=== PATIENT | female | born 1970 | race Two or more races ===

== ENCOUNTER 2018-06-14 14:30 | Inpatient (IN) | payer OTHER ==
[2018-06-14 14:55] LABS: BASO % 0.5 % (0.0-2.0); EOS # 0.2 K/uL (0.0-0.7); EOS % 2.6 % (0.0-4.0); HEMOGLOBIN 14.2 g/dL (11.0-16.0); LYMPH # 2.7 K/uL (1.0-4.3); LYMPH % 40.2 % (20.0-40.0); MEAN CELL VOLUME 91.9 fL (81.0-99.0); MEAN CORPUSCULAR HEMOGLOBIN 30.7 pg (27.0-31.0); MEAN CORPUSCULAR HGB CONC 33.4 g/dL (33.0-37.0); MEAN PLATELET VOLUME 8.3 fL (7.2-11.7); MONO # 0.7 K/uL (0.0-0.8); MONO % 11.1 % (0.0-10.0); NEUT # 3.1 K/uL (1.8-7.0); NEUT % 45.6 % (50.0-75.0); RBC 4.63 Mil/uL (3.80-5.20); RED CELL DISTRIBUTION WIDTH 13.9 % (11.5-14.5); WHITE BLOOD COUNT 6.8 K/uL (4.8-10.8)
[2018-06-14 15:08] LABS: BLOOD UREA NITROGEN 22 mg/dL (7-17); CALCIUM 9.5 mg/dl (8.6-10.4); GFR NON-AFRICAN AMERICAN > 60; HDL CHOLESTEROL 106 mg/dL (30-70)
[2018-06-14] MEDS ORDERED: DiphenhydrAMINE 50 mg/ml Inj IVP STA (15:10)
[2018-06-14 15:14] LABS: ALB/GLOB RATIO 1.2 (1.0-2.1); ALBUMIN 4.8 g/dL (3.5-5.0); ALT/SGPT 15 U/L (9-52); AST/SGOT 41 U/L (14-36)
[2018-06-14 15:20] LABS: CK-MB 0.76 ng/mL (0.0-3.38); LDL CHOLESTEROL 151 mg/dL (0-129)
[2018-06-14] MEDS ORDERED: DiphenhydrAMINE 50 mg/ml Inj ONE (15:29)
--- NOTE | 2018-06-14 15:47 | C.PDOC ---
History Of Present Illness Patient presents to ED c/o severe diffuse headache, blurry vision and nausea since earlier today while she was at work. Headaches began on Monday. Patient admits to history of hypertension, takes Lisinopril 20mg daily and is compliant. She denies chest pain, palpitations, SOB, facial droop, slurred speech, extremity weakness, sensory changes. Patient states she was given 5 ASA 81mg at her job. Time Seen by Provider: 06/14/18 14:44 Chief Complaint (Nursing): Headache History Per: Patient History/Exam Limitations: no limitations Onset/Duration Of Symptoms: Days Current Symptoms Are (Timing): Worse Severity: Severe Quality: "Pain" Associated Symptoms: Blurred Vision, Nausea Past Medical History Reviewed: Historical Data, Nursing Documentation, Vital Signs Vital Signs: Last Vital Signs Temp 98.5 F 06/14/18 14:34 Pulse 71 06/14/18 14:34 Resp 18 06/14/18 14:34 BP 241/145 H 06/14/18 14:34 Pulse Ox 100 06/14/18 14:34 - Medical History PMH: Asthma, HTN Surgical History: No Surg Hx Family History: States: No Known Family Hx - Social History Hx Alcohol Use: No Hx Substance Use: No - Immunization History Hx Tetanus Toxoid Vaccination: No Hx Influenza Vaccination: No Hx Pneumococcal Vaccination: No Review Of Systems Constitutional: Negative for: Fever, Chills Eyes: Positive for: Vision Change Cardiovascular: Negative for: Chest Pain, Palpitations Respiratory: Negative for: Cough, Shortness of Breath Gastrointestinal: Positive for: Nausea. Negative for: Vomiting, Abdominal Pain, Diarrhea Neurological: Positive for: Headache. Negative for: Weakness, Numbness, Incoordination, Change in Speech, Confusion, Seizures, Altered Mental Status, Dizziness Physical Exam - Physical Exam Appears: Well, Non-toxic, In Acute Distress (in moderate pain) Head: Atraumatic, Normacephalic Eye(s): bilateral: Normal Inspection, PERRL, EOMI Oral Mucosa: Moist Cardiovascular: Rhythm Regular Respiratory: Normal Breath Sounds, No Rales, No Rhonchi, No Wheezing Gastrointestinal/Abdominal: Normal Exam, Bowel Sounds, Soft, No Tenderness Extremity: Normal ROM, No Pedal Edema, No Calf Tenderness Pulses: Left Dorsalis Pedis: Normal, Right Dorsalis Pedis: Normal Neurological/Psych: Oriented x3, Normal Speech, Normal Cognition, Normal Cranial Nerves, No Cerebellar Signs, Normal Motor, Normal Sensation, No Dysarthria, No Romberg ED Course And Treatment - Laboratory Results Result Diagrams: 06/15/18 07:24 06/15/18 07:24 ECG: Interpreted By Me, Viewed By Me (NSR 66bpm, normal axis, LVH, T wave inversions III, aVF, no acute ST changes) ECG Interpretation: Abnormal O2 Sat by Pulse Oximetry: 100 (ra) Pulse Ox Interpretation: Normal - Radiology CXR: Interpreted by Me, Viewed By Me CXR Interpretation: Yes: No Acute Disease. No: Infiltrates - CT Scan/US ct head Other Rad Studies (CT/US): Read By Radiologist, Radiology Report Reviewed CT/US Interpretation: Accession No. : [id number]. Patient Name / ID : GITA GOLDBERG / [id number]. Exam Date : 06/14/2018 14:50:20 ( Approved ). Study Comment : Sex / Age : F / 47Y. Creator : Shirley Steven MD. Dictator : Shirley Steven MD. Vp Compliance : Group Product Manager : Shirley Steven MD. Approver2 : Report Date : 06/14/2018 15:03:59. My Comment : . Date of service: 06/14/2018. PROCEDURE: CT HEAD WITHOUT CONTRAST. HISTORY: Code Stroke. COMPARISON: None available. TECHNIQUE: Axial computed tomography images were obtained through the head/brain without intravenous contrast. Radiation dose: Total exam DLP = 10 67.25 mGy-cm. This CT exam was performed using one or more of the following dose reduction techniques: Automated exposure control, adjustment of the mA and/or kV according to patient size, and/or use of iterative reconstruction technique. FINDINGS: HEMORRHAGE: No intracranial hemorrhage. BRAIN: No mass effect or edema. Intracranial atherosclerosis. Bilateral basal ganglia calcifications. No atrophy or chronic microvascular ischemic changes.Please note that MRI with diffusion imaging is more sensitive in the detection of acute ischemic event. VENTRICLES: No hydrocephalus. CALVARIUM: Unremarkable. PARANASAL SINUSES: Unremarkable as visualized. No significant inflammatory changes. MASTOID AIR CELLS: Unremarkable as visualized. No inflammatory changes. OTHER FINDINGS: None. IMPRESSION: No acute intracranial pathology identified. Findings discussed with Dr. Lopez on 06/14/18 at 3:02 p.m. Progress Note: Code stroke called. Blood work, CT head, EKG, UA, Upreg ordered and reviewed. Patient given IV reglan + benadryl for headache and nausea. 4 :20pm- Patient reassessed, headache, lightheadedness and blurry vision resolved, patient states she feels much better. BP still 180s/110s. Patient to be obs telemetry for hypertensive urgency. - Physician Consult Information Physician Contacted: Caesar Miguel Outcome Of Conversation: Discussed patient with hospitalist, agrees with admission for HTN urgency. Discussed patient with neurology Dr. Mehta, will see patient on consult. Critical Care Time - Critical Care Note Total Time (in mins): 35 Documented critical care: time excludes all time spent performing seperately billable procedures. NIHSS Stroke Scale - Date/Time Evaluation Performed Date Performed: 06/14/18 Time Performed: 14:40 When Was NIHSS Performed: Baseline - How Severe is the Stoke Level of Consciousness: 0=Alert LOC to Questions: 0=Both comments correct LOC to commands: 0=Obeys both correctly Best Gaze: 0=Normal Visual: 0=No visual loss Facial: 0=Normal Motor Arm - Left: 0=No drift Motor Arm - Right: 0=No drift Motor Leg - Left: 0=No drift Motor Leg - Right: 0=No drift Limb Ataxia: 0=Absent Sensory: 0=Normal Best Language: 0=No aphasia Dysarthia: 0=Normal articulation Extinction & Inattention (Neglect): 0=Normal, no object Score: 0 Severity Of Stroke: 0= No Stroke rTPA Inclusion/Exclusion - Refusal of Treatment Patient Refused Treatment: No - Inclusion Criteria for Altepase Patient is 18 years or Older: Yes The Clinical Diagnosis of Ischemic Stroke That is Causing a Potentially Disabling Neurological Deficit: No Time of Onset is Well Established to be Less Than 270 Minute Before Treatment Would Begin: Yes Risk/Benefit Discussed With Patient/Family Member Present: No Disposition - Disposition Disposition: HOSPITALIZED Disposition Time: 16:45 Condition: STABLE - Clinical Impression Clinical Impression: Hypertensive urgency Decision To Admit - Pt Status Changed To: Hospital Disposition Of: Observation - . Bed Request Type: Telemetry Admitting Physician: Caesar Miguel Patient Diagnosis: Hypertensive urgency
[2018-06-14 15:53] LABS: HCG,QUALITATIVE URINE NEGATIVE (NEGATIVE)
[2018-06-14 15:54] LABS: SQUAMOUS EPITHIAL 3 /hpf (0-5); URINE BILIRUBIN NEGATIVE (NEGATIVE); URINE BLOOD NEGATIVE (NEGATIVE); URINE CLARITY Clear (Clear); URINE COLOR Yellow (YELLOW); URINE GLUCOSE (UA) NORMAL (Normal); URINE LEUKOCYTE ESTERASE NEG Leu/uL (Negative); URINE PROTEIN NEGATIVE (NEGATIVE); URINE UROBILINOGEN NORMAL mg/dL (0.2-1.0)
[2018-06-14 15:56] LABS: INR 0.9; PROTHROMBIN TIME 10.1 SECONDS (9.7-12.2)
--- NOTE | 2018-06-14 16:34 | RAD ---
HISTORY: Code Stroke COMPARISON: None available. TECHNIQUE: Chest, one view. FINDINGS: LUNGS: Hyperinflation may be seen in the setting of COPD. No focal consolidation. Please note that chest x-ray has limited sensitivity for the detection of pulmonary masses. PLEURA: No significant pleural effusion identified. No definite pneumothorax . CARDIOVASCULAR: The cardiomediastinal silhouette appears within normal limits of size. Mild atherosclerotic calcification present. OSSEOUS STRUCTURES: No acute osseous abnormality identified. VISUALIZED UPPER ABDOMEN: Unremarkable. OTHER FINDINGS: None. IMPRESSION: Hyperinflation may be seen in the setting of COPD.
[2018-06-14 16:49] VITALS: RESP 20
--- NOTE | 2018-06-14 17:35 | CP.PCM.HP ---
<Shante Cruz - Last Filed: 06/14/18 19:54> History of Present Illness - History of Present Illness History of Present Illness: History and physical for Hospitalist service (Dr. Caesar Miguel) CC "headache, dizziness" HPI: Patient is a 47 year old female who reports she started experiencing a headache described as pressure like pain that started in the left side of her head and spread to the rest of her head that initially started 4 days ago. She states she has been taking Advil 200mg frequently for her headaches. She states she woke up from her sleep with a severe pressure like headache and she took Advil 400mg this morning. She went to work this morning and began to experience some dizziness which she describes as feeling like "her head was shrinking" associated with blurry vision. Her coworker who works as an EMT reportedly gave her ASA 81mg x5 and she was brought to the ED by her boss. She admits she had a similar episode of headache about 3 months ago when she went to the [place] ED and was found to have elevated blood pressure in the 200s. She states she was given IV medications and observed for a few hours before being sent home. She currently states she is no longer dizzy or experiencing blurry vision, but states her headache currently is a 6/10. At its worst her headache was a 10/10 and its best at home, her headache was 7/10. She denies recent falls, recent injury, recent syncopal episodes. She denies recent travel or sick contacts. ROS: (+) palpitations when she experienced pressure like headache, resolved, (+) nausea after she took Advil on an empty stomach denies fevers, chills, loss of consciousness, chest pain, shortness of breath, abdominal pain, vomiting, diarrhea, constipation, dysuria, polyuria, change in bowel movements, bloody or dark stools, leg swelling or leg pain. PMH: hypertension, asthma (no hx of prior intubations or hospitalizations for her asthma, last used her rescue inhaler over 2 years ago) PSH: tubal ligation Allergies: NKDA Meds: Lisinopril 20mg daily, Advair 1 puff daily, Albuterol inhaler as needed. 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 Has smoked since the age of 14, currently smokes 2 cigarettes daily. Drinks 2 glasses of wine with dinner occasionally. Denies illicit drug use. Currently single, has 1 child. Family hx: Mother had DM. Parents and sister has hyperlipidemia. Brother has asthma. 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 Code status: full code Advance directive: none Health care proxy: has not designated Present on Admission - Present on Admission Any Indicators Present on Admission: No Review of Systems - Constitutional Constitutional: Headache. absent: Chills, Fever - EENT Eyes: Blurred Vision Ears: absent: Decreased Hearing - Cardiovascular Cardiovascular: absent: Chest Pain, Dyspnea, Leg Edema, Syncope - Respiratory Respiratory: absent: Cough, Dyspnea, Hemoptysis - Gastrointestinal Gastrointestinal: Nausea. absent: Abdominal Pain, Diarrhea, Vomiting - Genitourinary Genitourinary: absent: Difficulty Urinating, Dysuria, Urinary Incontinence - Musculoskeletal Musculoskeletal: absent: Back Pain, Numbness, Tingling - Neurological Neurological: Dizziness. absent: Confusion, Focal Weakness - Psychiatric Psychiatric: absent: Anxiety, Depression Past Patient History - Past Social History Smoking Status: Heavy Smoker > 10 Cigarettes Daily - CARDIAC Hx Hypertension: Yes - PULMONARY Hx Asthma: Yes - PSYCHIATRIC Hx Substance Use: No - ANESTHESIA Hx Anesthesia: No Meds Allergies/Adverse Reactions: Allergies Allergy/AdvReac Type Severity Reaction Status Date / Time No Known Allergies Allergy Verified 06/14/18 14:43 Physical Exam - Constitutional Appears: Well, No Acute Distress - Head Exam Head Exam: ATRAUMATIC, NORMOCEPHALIC - Eye Exam Eye Exam: EOMI, PERRL - ENT Exam ENT Exam: Mucous Membranes Moist - Neck Exam Neck exam: Positive for: Full Rom. Negative for: Lymphadenopathy, Thyromegaly Additional comments: (+) mild paracervical tenderness, mild tenderness of trapezius bilaterally - Respiratory Exam Respiratory Exam: Clear to Auscultation Bilateral, NORMAL BREATHING PATTERN. absent: Accessory Muscle Use, Rales, Rhonchi, Wheezes, Stridor - Cardiovascular Exam Cardiovascular Exam: REGULAR RHYTHM, +S1, +S2. absent: Gallop, Rubs, Systolic Murmur - GI/Abdominal Exam GI & Abdominal Exam: Normal Bowel Sounds, Soft. absent: Distended, Firm, Guarding, Rebound, Rigid, Tenderness - Extremities Exam Extremities exam: Positive for: normal capillary refill, pedal pulses present. Negative for: calf tenderness, pedal edema Additional comments: Pulses equal in upper and lower extremities - Back Exam Back exam: absent: CVA tenderness (L), CVA tenderness (R), rash noted - Neurological Exam Neurological exam: Alert, CN II-XII Intact, Oriented x3 Additional comments: Strength equal and full in upper and lower extremities. Sensation intact. - Psychiatric Exam Psychiatric exam: Normal Affect, Normal Mood - Skin Skin Exam: Dry, Intact, Warm Results - Vital Signs Recent Vital Signs: Last Vital Signs Temp 98.5 F 06/14/18 14:34 Pulse 64 06/14/18 16:47 Resp 20 06/14/18 16:47 BP 188/126 H 06/14/18 16:47 Pulse Ox 100 06/14/18 16:47 - Labs Result Diagrams: 06/14/18 14:51 06/14/18 14:51 Labs: Laboratory Results - last 24 hr 06/14/18 06/14/18 06/14/18 14:43 14:51 14:51 WBC 6.8 RBC 4.63 Hgb 14.2 Hct 42.6 MCV 91.9 MCH 30.7 MCHC 33.4 RDW 13.9 Plt Count 265 MPV 8.3 Neut % (Auto) 45.6 L Lymph % (Auto) 40.2 H [place] % (Auto) 11.1 H Eos % (Auto) 2.6 Baso % (Auto) 0.5 Neut # (Auto) 3.1 Lymph # (Auto) 2.7 [place] # (Auto) 0.7 Eos # (Auto) 0.2 Baso # (Auto) 0.0 PT Cancelled INR Cancelled APTT Cancelled Sodium Potassium Chloride Carbon Dioxide Anion Gap BUN Creatinine Est GFR ( Amer) Est GFR (Non-Af Amer) POC Glucose (mg/dL) 80 Random Glucose Hemoglobin A1c Calcium Total Bilirubin AST ALT Alkaline Phosphatase Total Creatine Kinase CK-MB (Mass) Troponin I Total Protein Albumin Globulin Albumin/Globulin Ratio Triglycerides Cholesterol LDL Cholesterol Direct HDL Cholesterol Urine Color Urine Clarity Urine pH Ur Specific [place] Urine Protein Urine Glucose (UA) Urine Ketones Urine Blood Urine Nitrate Urine Bilirubin Urine Urobilinogen Ur Leukocyte Esterase Urine WBC (Auto) Urine RBC (Auto) Ur Squamous Epith Cells Urine HCG, Qual Blood Type Antibody Screen 06/14/18 06/14/18 06/14/18 14:51 14:51 15:41 WBC RBC Hgb Hct MCV MCH MCHC RDW Plt Count MPV Neut % (Auto) Lymph % (Auto) [place] % (Auto) Eos % (Auto) Baso % (Auto) Neut # (Auto) Lymph # (Auto) [place] # (Auto) Eos # (Auto) Baso # (Auto) PT INR APTT Sodium 139 Potassium 4.6 Chloride 101 Carbon Dioxide 28 Anion Gap 15 BUN 22 H Creatinine 0.8 Est GFR ( Amer) > 60 Est GFR (Non-Af Amer) > 60 POC Glucose (mg/dL) Random Glucose 82 Hemoglobin A1c 5.3 Calcium 9.5 Total Bilirubin 1.0 AST 41 H ALT 15 Alkaline Phosphatase 62 Total Creatine Kinase 68 CK-MB (Mass) 0.76 Troponin I 0.0160 Total Protein 8.7 H Albumin 4.8 Globulin 3.9 Albumin/Globulin Ratio 1.2 Triglycerides 94 Cholesterol 284 H LDL Cholesterol Direct 151 H HDL Cholesterol 106 H Urine Color Yellow Urine Clarity Clear Urine pH 6.0 Ur Specific [place] 1.020 Urine Protein Negative Urine Glucose (UA) Normal Urine Ketones Negative Urine Blood Negative Urine Nitrate Negative Urine Bilirubin Negative Urine Urobilinogen Normal Ur Leukocyte Esterase Neg Urine WBC (Auto) 1 Urine RBC (Auto) < 1 Ur Squamous Epith Cells 3 Urine HCG, Qual Negative Blood Type Antibody Screen 06/14/18 06/14/18 15:41 15:42 WBC RBC Hgb Hct MCV MCH MCHC RDW Plt Count MPV Neut % (Auto) Lymph % (Auto) [place] % (Auto) Eos % (Auto) Baso % (Auto) Neut # (Auto) Lymph # (Auto) [place] # (Auto) Eos # (Auto) Baso # (Auto) PT 10.1 INR 0.9 APTT 30 Sodium Potassium Chloride Carbon Dioxide Anion Gap BUN Creatinine Est GFR ( Amer) Est GFR (Non-Af Amer) POC Glucose (mg/dL) Random Glucose Hemoglobin A1c Calcium Total Bilirubin AST ALT Alkaline Phosphatase Total Creatine Kinase CK-MB (Mass) Troponin I Total Protein Albumin Globulin Albumin/Globulin Ratio Triglycerides Cholesterol LDL Cholesterol Direct HDL Cholesterol Urine Color Urine Clarity Urine pH Ur Specific [place] Urine Protein Urine Glucose (UA) Urine Ketones Urine Blood Urine Nitrate Urine Bilirubin Urine Urobilinogen Ur Leukocyte Esterase Urine WBC (Auto) Urine RBC (Auto) Ur Squamous Epith Cells Urine HCG, Qual Blood Type O POSITIVE Antibody Screen Negative Assessment & Plan - Assessment and Plan (Free Text) Plan: Assessment 47 year old female with history of hypertension and asthma who presented for complaints of headache, dizziness and blurry vision and found to have elevated blood pressure. Plan Hypertensive urgency Symptoms of headache, dizziness and blurry vision likely secondary to elevated blood pressure On arrival to ED, code stroke was called and ED consulted Neurologist Dr. Darron Mehta as per protocol EKG: NSR at 66 with LVH CXR (06/14/18): Hyperinflation may be seen in the setting of COPD CT head: no acute bleed On arrival to ED, patient's initial blood pressure elevated at 241/145 Patient received Reglan 10mg with reduction of systolic blood pressure to 180s. Current blood pressure at 188/126 Given patient's symptoms started a few days ago, current plan to allow for permissive hypertension for 24 hours Hydralazine 10mg PO Q6 as needed if systolic BP exceeds 180s Consider adding Lisinopril and Norvasc after 24 hours have elapsed. F/u TSH,T4 Hyperlidemia TG 94 Cholesterol 284 LDL 151 HDL 106 Consider statin LVH seen on EKG f/u ECHO History of asthma Currently asymptomatic Last asthma exacerbation where patient had to use rescue inhaler over 2 years ago. Duonebs Q6 PRN Breo Ellipta 100-25 1 puff daily Prophylaxis: DVT: SCDs, chemical anticoagulation not indicated GI: not indicated Heart healthy diet, 2 g Na Case discussed with Dr. Caesar Cruz, PGY1 <Caesar Miguel - Last Filed: 06/17/18 20:28> Results - Vital Signs Recent Vital Signs: Last Vital Signs Temp 98.1 F 06/15/18 15:15 Pulse 63 06/15/18 15:15 Resp 20 06/15/18 15:15 BP 140/91 H 06/15/18 15:15 Pulse Ox 97 06/15/18 15:15 - Labs Result Diagrams: 06/15/18 07:24 06/15/18 07:24 Attending/Attestation - Attestation I have personally seen and examined this patient.: Yes I have fully participated in the care of the patient.: Yes I have reviewed all pertinent clinical information: Yes Notes (Text): 06/17/18 20:27 This is a late entry. History, Physical, Assessment and Plan, and all orders were gone over in detail with the resident. Caesar Miguel D.O.
[2018-06-14] MEDS ORDERED: Albuterol-Ipratrop 3 mg / 0.5 (3 ml) UD INH PRN (18:38)
[2018-06-15 07:39] LABS: BASO % 0.2 % (0.0-2.0); EOS # 0.2 K/uL (0.0-0.7); EOS % 4.4 % (0.0-4.0); HEMOGLOBIN 13.2 g/dL (11.0-16.0); LYMPH % 37.6 % (20.0-40.0); MEAN CELL VOLUME 91.4 fL (81.0-99.0); MEAN CORPUSCULAR HEMOGLOBIN 32.3 pg (27.0-31.0); MEAN CORPUSCULAR HGB CONC 35.4 g/dL (33.0-37.0); MEAN PLATELET VOLUME 8.5 fL (7.2-11.7); MONO # 0.5 K/uL (0.0-0.8); MONO % 9.8 % (0.0-10.0); NEUT # 2.6 K/uL (1.8-7.0); RBC 4.07 Mil/uL (3.80-5.20); RED CELL DISTRIBUTION WIDTH 13.8 % (11.5-14.5); WHITE BLOOD COUNT 5.3 K/uL (4.8-10.8)
[2018-06-15] MEDS ORDERED: Fluticasone-Vilanterol 100/25mcg Diskus INH SCH (08:00)
--- NOTE | 2018-06-15 08:43 | CT ---
Date of service: 06/14/2018 PROCEDURE: CT HEAD WITHOUT CONTRAST. HISTORY: Code Stroke COMPARISON: None available. TECHNIQUE: Axial computed tomography images were obtained through the head/brain without intravenous contrast. Radiation dose: Total exam DLP = 1067.25 mGy-cm. This CT exam was performed using one or more of the following dose reduction techniques: Automated exposure control, adjustment of the mA and/or kV according to patient size, and/or use of iterative reconstruction technique. FINDINGS: HEMORRHAGE: No intracranial hemorrhage. BRAIN: No mass effect or edema. Intracranial atherosclerosis. Bilateral basal ganglia calcifications. No atrophy or chronic microvascular ischemic changes.Please note that MRI with diffusion imaging is more sensitive in the detection of acute ischemic event. VENTRICLES: No hydrocephalus. CALVARIUM: Unremarkable. PARANASAL SINUSES: Unremarkable as visualized. No significant inflammatory changes. MASTOID AIR CELLS: Unremarkable as visualized. No inflammatory changes. OTHER FINDINGS: None. IMPRESSION: No acute intracranial pathology identified. Findings discussed with Dr. Lopez on 06/14/18 at 3:02 p.m.
[2018-06-15 09:10] LABS: ALB/GLOB RATIO 1.3 (1.0-2.1); ALBUMIN 3.9 g/dL (3.5-5.0); ALT/SGPT 15 U/L (9-52); AST/SGOT 24 U/L (14-36); BLOOD UREA NITROGEN 22 mg/dL (7-17); GFR NON-AFRICAN AMERICAN > 60
[2018-06-15 12:08] VITALS: PULSE 63
--- NOTE | 2018-06-15 12:37 | CP.PCM.DIS ---
<CouchXochitl - Last Filed: 06/15/18 16:00> Provider - Provider Date of Admission: 06/14/18 16:45 Attending physician: Caesar Miguel MD Time Spent in preparation of Discharge (in minutes): 45 Diagnosis - Discharge Diagnosis (1) Hypertensive urgency Status: Acute Hospital Course - Lab Results Lab Results: Most Recent Lab Values WBC 5.3 K/uL (4.8-10.8) 06/15/18 07:24 RBC 4.07 Mil/uL (3.80-5.20) 06/15/18 07:24 Hgb 13.2 g/dL (11.0-16.0) 06/15/18 07:24 Hct 37.2 % (34.0-47.0) 06/15/18 07:24 MCV 91.4 fL (81.0-99.0) 06/15/18 07:24 MCH 32.3 pg (27.0-31.0) H 06/15/18 07:24 MCHC 35.4 g/dL (33.0-37.0) 06/15/18 07:24 RDW 13.8 % (11.5-14.5) 06/15/18 07:24 Plt Count 240 K/uL (130-400) 06/15/18 07:24 MPV 8.5 fL (7.2-11.7) 06/15/18 07:24 Neut % (Auto) 48.0 % (50.0-75.0) L 06/15/18 07:24 Lymph % (Auto) 37.6 % (20.0-40.0) 06/15/18 07:24 [place] % (Auto) 9.8 % (0.0-10.0) 06/15/18 07:24 Eos % (Auto) 4.4 % (0.0-4.0) H 06/15/18 07:24 Baso % (Auto) 0.2 % (0.0-2.0) 06/15/18 07:24 Neut # (Auto) 2.6 K/uL (1.8-7.0) 06/15/18 07:24 Lymph # (Auto) 2.0 K/uL (1.0-4.3) 06/15/18 07:24 [place] # (Auto) 0.5 K/uL (0.0-0.8) 06/15/18 07:24 Eos # (Auto) 0.2 K/uL (0.0-0.7) 06/15/18 07:24 Baso # (Auto) 0.0 K/uL (0.0-0.2) 06/15/18 07:24 PT 10.1 SECONDS (9.7-12.2) 06/14/18 15:41 INR 0.9 06/14/18 15:41 APTT 30 SECONDS (21-34) 06/14/18 15:41 Sodium 137 mmol/L (132-148) 06/15/18 07:24 Potassium 4.2 mmol/L (3.6-5.2) 06/15/18 07:24 Chloride 104 mmol/L (98-107) 06/15/18 07:24 Carbon Dioxide 27 mmol/L (22-30) 06/15/18 07:24 Anion Gap 10 (10-20) 06/15/18 07:24 BUN 22 mg/dL (7-17) H 06/15/18 07:24 Creatinine 0.8 mg/dL (0.7-1.2) 06/15/18 07:24 Est GFR ( Amer) > 60 06/15/18 07:24 Est GFR (Non-Af Amer) > 60 06/15/18 07:24 POC Glucose (mg/dL) 80 mg/dL (65-110) 06/14/18 14:43 Random Glucose 93 mg/dL (65-105) 06/15/18 07:24 Hemoglobin A1c 5.3 % (4.2-6.5) 06/14/18 14:51 Calcium 9.0 mg/dl (8.6-10.4) 06/15/18 07:24 Phosphorus 3.9 mg/dL (2.5-4.5) 06/15/18 07:24 Magnesium 1.9 mg/dL (1.6-2.3) 06/15/18 07:24 Total Bilirubin 0.5 mg/dL (0.2-1.3) 06/15/18 07:24 AST 24 U/L (14-36) 06/15/18 07:24 ALT 15 U/L (9-52) 06/15/18 07:24 Alkaline Phosphatase 50 U/L (38-126) 06/15/18 07:24 Total Creatine Kinase 68 U/L (30-135) 06/14/18 14:51 CK-MB (Mass) 0.76 ng/mL (0.0-3.38) 06/14/18 14:51 Troponin I 0.0160 ng/mL (0.00-0.120) 06/14/18 14:51 Total Protein 6.9 g/dL (6.3-8.3) 06/15/18 07:24 Albumin 3.9 g/dL (3.5-5.0) 06/15/18 07:24 Globulin 3.0 gm/dL (2.2-3.9) 06/15/18 07:24 Albumin/Globulin Ratio 1.3 (1.0-2.1) 06/15/18 07:24 Triglycerides 94 mg/dL (0-149) 06/14/18 14:51 Cholesterol 284 mg/dL (0-199) H 06/14/18 14:51 LDL Cholesterol Direct 151 mg/dL (0-129) H 06/14/18 14:51 HDL Cholesterol 106 mg/dL (30-70) H 06/14/18 14:51 Free T4 1.17 ng/dL (0.78-2.19) 06/14/18 22:41 TSH 3rd Generation 2.81 mIU/L (0.46-4.68) 06/14/18 22:41 Urine Color Yellow (YELLOW) 06/14/18 15:41 Urine Clarity Clear (Clear) 06/14/18 15:41 Urine pH 6.0 (5.0-8.0) 06/14/18 15:41 Ur Specific [place] 1.020 (1.003-1.030) 06/14/18 15:41 Urine Protein Negative mg/dL (NEGATIVE) 06/14/18 15:41 Urine Glucose (UA) Normal mg/dL (Normal) 06/14/18 15:41 Urine Ketones Negative mg/dL (NEGATIVE) 06/14/18 15:41 Urine Blood Negative (NEGATIVE) 06/14/18 15:41 Urine Nitrate Negative (NEGATIVE) 06/14/18 15:41 Urine Bilirubin Negative (NEGATIVE) 06/14/18 15:41 Urine Urobilinogen Normal mg/dL (0.2-1.0) 06/14/18 15:41 Ur Leukocyte Esterase Neg Adela/uL (Negative) 06/14/18 15:41 Urine WBC (Auto) 1 /hpf (0-5) 06/14/18 15:41 Urine RBC (Auto) < 1 /hpf (0-3) 06/14/18 15:41 Ur Squamous Epith Cells 3 /hpf (0-5) 06/14/18 15:41 Urine HCG, Qual Negative (NEGATIVE) 06/14/18 15:41 Blood Type O POSITIVE 06/14/18 15:42 Antibody Screen Negative 06/14/18 15:42 - Hospital Course Hospital Course: Patient is a 47 year old female who reports she started experiencing a headache described as pressure like pain that started in the left side of her head and spread to the rest of her head that initially started 4 days ago. She states she has been taking Advil 200mg frequently for her headaches. She states she woke up from her sleep with a severe pressure like headache and she took Advil 400mg this morning. She went to work this morning and began to experience some dizziness which she describes as feeling like "her head was shrinking" associated with blurry vision. Her coworker who works as an EMT reportedly gave her ASA 81mg x5 and she was brought to the ED by her boss. She admits she had a similar episode of headache about 3 months ago when she went to the [place] ED and was found to have elevated blood pressure in the 200s. She states she was given IV medications and observed for a few hours before being sent home. She currently states she is no longer dizzy or experiencing blurry vision, but states her headache currently is a 6/10. At its worst her headache was a 10/10 and its best at home, her headache was 7/10. She denies recent falls, recent injury, recent syncopal episodes. She denies recent travel or sick contacts. Stroke evaluation in the ED was negative. She also got a CXR that showed COPD changes. CT of the head was negative and EKG showed LVH. She was admitted and put on permissive hypertension therapy with hydralazine. SBP continued to be >180 so home lisinopril was restarted and BP and ORTEGA decreased. Cardio completed an ECHO to evaluate the LVH. Primary Diagnosis: Hypertensive urgency Patient cleared for discharge per Dr. Darrian Miguel. You are restarted on your home Lisinopril. You are not being started on any new medication. Please keep your follow up appointment with Dr. Olivares on the . She will review your blood pressure medications and have final say about your home regimen as well as review your ECHO results. As discussed, you will purchase a blood pressure cuff at your local pharmacy to keep a log of your blood pressures at home. Take your blood pressure before breakfast on the first day, before lunch on the second, before dinner the next day, and before bed on the fourth. Keep cycling in this order. If you forget to take your pressure in the morning, take it whenever you remember and make note of what time of day it was taken. It is better for us to have daily records even if they don't cycle through different times of day. Please bring this log to your appointment with Dr. Olivares. If your pressure ever exceeds 180/110 or if you start experiencing symptoms (headache, nose bleeds, nausea/vomiting, numbness, weakness, chest pain, difficulty talking) please immediately come back to the ED. Plan was discussed with patient who understood and agreed. This is a summary of the hospital course. Please refer to the EMR for more details. - Date & Time of H&P Date of H&P: 06/15/18 Time of H&P: 13:00 Discharge Exam - Head Exam Head Exam: ATRAUMATIC, NORMOCEPHALIC - Eye Exam Eye Exam: EOMI, PERRL - ENT Exam ENT Exam: Mucous Membranes Moist - Neck Exam Additional comments: (+) mild paracervical tenderness, mild tenderness of trapezius bilaterally - Respiratory Exam Respiratory Exam: Clear to PA & Lateral, NORMAL BREATHING PATTERN. absent: Rales, Rhonchi, Wheezes - Cardiovascular Exam Cardiovascular Exam: REGULAR RHYTHM, +S1, +S2 - GI/Abdominal Exam GI & Abdominal Exam: Normal Bowel Sounds, Soft. absent: Distended, Firm, Guarding, Tenderness - Extremities Exam Extremities exam: normal capillary refill, pedal pulses present Additional comments: peripheral pulses palpable bilaterally (radial, DP, PT) - Back Exam Back exam: absent: CVA tenderness (L), CVA tenderness (R), rash noted - Neurological Exam Neurological exam: Alert, CN II-XII Intact, Oriented x3 Additional comments: Muscle strength 5/5 in upper and lower extremities Sensation intact - Psychiatric Exam Psychiatric exam: Normal Affect, Normal Mood - Skin Skin Exam: Dry, Intact, Normal Color, Warm Discharge Plan - Discharge Medications Prescriptions: Lisinopril [Zestril] 20 mg PO DAILY #30 tab - Follow Up Plan Condition: GOOD Disposition: HOME/ ROUTINE Instructions: DASH Diet, High Blood Pressure (DC), Hypertension (GEN) Additional Instructions: Patient cleared for discharge per Dr. Darrian Miguel. You are restarted on your home Lisinopril. You are not being started on any new medication. Please keep your follow up appointment with Dr. Olivares on the . She will review your blood pressure medications and have final say about your home regimen as well as review your ECHO results. As discussed, you will purchase a blood pressure cuff at your local pharmacy to keep a log of your blood pressures at home. Take your blood pressure before breakfast on the first day, before lunch on the second, before dinner the next day, and before bed on the fourth. Keep cycling in this order. If you forget to take your pressure in the morning, take it whenever you remember and make note of what time of day it was taken. It is better for us to have daily records even if they don't cycle through different times of day. Please bring this log to your appointment with Dr. Olivares. If your pressure ever exceeds 180/110 or if you start experiencing symptoms (headache, nose bleeds, nausea/vomiting, numbness, weakness, chest pain, difficulty talking) please immediately come back to the ED. Plan was discussed with patient who understood and agreed. Referrals: Isidra Olivares DO [[facility]] - <Caesar Miguel - Last Filed: 06/17/18 20:28> Provider - Provider Date of Admission: 06/14/18 16:45 Attending physician: Caesar Miguel MD Time Spent in preparation of Discharge (in minutes): 40 Hospital Course - Lab Results Lab Results: Most Recent Lab Values WBC 5.3 K/uL (4.8-10.8) 06/15/18 07:24 RBC 4.07 Mil/uL (3.80-5.20) 06/15/18 07:24 Hgb 13.2 g/dL (11.0-16.0) 06/15/18 07:24 Hct 37.2 % (34.0-47.0) 06/15/18 07:24 MCV 91.4 fL (81.0-99.0) 06/15/18 07:24 MCH 32.3 pg (27.0-31.0) H 06/15/18 07:24 MCHC 35.4 g/dL (33.0-37.0) 06/15/18:24 RDW 13.8 % (11.5-14.5) 06/15/18 07:24 Plt Count 240 K/uL (130-400) 06/15/18 07:24 MPV 8.5 fL (7.2-11.7) 06/15/18 07:24 Neut % (Auto) 48.0 % (50.0-75.0) L 06/15/18 07:24 Lymph % (Auto) 37.6 % (20.0-40.0) 06/15/18:24 [place] % (Auto) 9.8 % (0.0-10.0) 06/15/18 07:24 Eos % (Auto) 4.4 % (0.0-4.0) H 06/15/18 07:24 Baso % (Auto) 0.2 % (0.0-2.0) 06/15/18 07:24 Neut # (Auto) 2.6 K/uL (1.8-7.0) 06/15/18 07:24 Lymph # (Auto) 2.0 K/uL (1.0-4.3) 06/15/18:24 [place] # (Auto) 0.5 K/uL (0.0-0.8) 06/15/18 07:24 Eos # (Auto) 0.2 K/uL (0.0-0.7) 06/15/18 07:24 Baso # (Auto) 0.0 K/uL (0.0-0.2) 06/15/18 07:24 PT 10.1 SECONDS (9.7-12.2) 06/14/18 15:41 INR 0.9 06/14/18 15:41 APTT 30 SECONDS (21-34) 06/14/18 15:41 Sodium 137 mmol/L (132-148) 06/15/18 07:24 Potassium 4.2 mmol/L (3.6-5.2) 06/15/18 07:24 Chloride 104 mmol/L (98-107) 06/15/18 07:24 Carbon Dioxide 27 mmol/L (22-30) 06/15/18 07:24 Anion Gap 10 (10-20) 06/15/18 07:24 BUN 22 mg/dL (7-17) H 06/15/18 07:24 Creatinine 0.8 mg/dL (0.7-1.2) 06/15/18 07:24 Est GFR ( Amer) > 60 06/15/18 07:24 Est GFR (Non-Af Amer) > 60 06/15/18 07:24 POC Glucose (mg/dL) 80 mg/dL (65-110) 06/14/18 14:43 Random Glucose 93 mg/dL (65-105) 06/15/18 07:24 Hemoglobin A1c 5.3 % (4.2-6.5) 06/14/18 14:51 Calcium 9.0 mg/dl (8.6-10.4) 06/15/18 07:24 Phosphorus 3.9 mg/dL (2.5-4.5) 06/15/18 07:24 Magnesium 1.9 mg/dL (1.6-2.3) 06/15/18 07:24 Total Bilirubin 0.5 mg/dL (0.2-1.3) 06/15/18 07:24 AST 24 U/L (14-36) 06/15/18 07:24 ALT 15 U/L (9-52) 06/15/18 07:24 Alkaline Phosphatase 50 U/L (38-126) 06/15/18 07:24 Total Creatine Kinase 68 U/L (30-135) 06/14/18 14:51 CK-MB (Mass) 0.76 ng/mL (0.0-3.38) 06/14/18 14:51 Troponin I 0.0160 ng/mL (0.00-0.120) 06/14/18 14:51 Total Protein 6.9 g/dL (6.3-8.3) 06/15/18 07:24 Albumin 3.9 g/dL (3.5-5.0) 06/15/18 07:24 Globulin 3.0 gm/dL (2.2-3.9) 06/15/18 07:24 Albumin/Globulin Ratio 1.3 (1.0-2.1) 06/15/18 07:24 Triglycerides 94 mg/dL (0-149) 06/14/18 14:51 Cholesterol 284 mg/dL (0-199) H 06/14/18 14:51 LDL Cholesterol Direct 151 mg/dL (0-129) H 06/14/18 14:51 HDL Cholesterol 106 mg/dL (30-70) H 06/14/18 14:51 Free T4 1.17 ng/dL (0.78-2.19) 06/14/18 22:41 TSH 3rd Generation 2.81 mIU/L (0.46-4.68) 06/14/18 22:41 Urine Color Yellow (YELLOW) 06/14/18 15:41 Urine Clarity Clear (Clear) 06/14/18 15:41 Urine pH 6.0 (5.0-8.0) 06/14/18 15:41 Ur Specific [place] 1.020 (1.003-1.030) 06/14/18 15:41 Urine Protein Negative mg/dL (NEGATIVE) 06/14/18 15:41 Urine Glucose (UA) Normal mg/dL (Normal) 06/14/18 15:41 Urine Ketones Negative mg/dL (NEGATIVE) 06/14/18 15:41 Urine Blood Negative (NEGATIVE) 06/14/18 15:41 Urine Nitrate Negative (NEGATIVE) 06/14/18 15:41 Urine Bilirubin Negative (NEGATIVE) 06/14/18 15:41 Urine Urobilinogen Normal mg/dL (0.2-1.0) 06/14/18 15:41 Ur Leukocyte Esterase Neg [place]ela/uL (Negative) 06/14/18 15:41 Urine WBC (Auto) 1 /hpf (0-5) 06/14/18 15:41 Urine RBC (Auto) < 1 /hpf (0-3) 06/14/18 15:41 Ur Squamous Epith Cells 3 /hpf (0-5) 06/14/18 15:41 Urine HCG, Qual Negative (NEGATIVE) 06/14/18 15:41 Blood Type O POSITIVE 06/14/18 15:42 Antibody Screen Negative 06/14/18 15:42 Attending/Attestation - Attestation I have personally seen and examined this patient.: Yes I have fully participated in the care of the patient.: Yes I have reviewed all pertinent clinical information, including history, physical exam and plan: Yes
[2018-06-15 15:51] VITALS: BP 140/91; TEMP 98.1
[2018-06-15] MEDS ORDERED: Influenza Vaccine 60 MCG/0.5 ML SYR (3 yr & up) IM ONE (16:19)
[2018-06-15] MEDS ORDERED: Pneumococcal 23-Valent Vaccine IM ONE (16:20)
--- NOTE | 2018-06-15 21:19 | CARD ---
APPROVED REPORT Date of service: 06/14/2018 EKG Measurement Heart [id number] <Conclusion> Normal sinus rhythm Minimal voltage criteria for LVH, may be normal variant Borderline ECG
[2018-06-16] MEDS ORDERED: Pneumococcal 23-Valent Vaccine IM ONE (12:00)
[2018-06-16] MEDS ORDERED: Influenza Vaccine 60 MCG/0.5 ML SYR (3 yr & up) IM ONE (12:00)
--- NOTE | 2018-06-16 19:23 | CARD ---
APPROVED REPORT Date of service: 06/15/2018 EXAM: Two-dimensional and M-mode echocardiogram with Doppler and color Doppler. Other Information Quality : GoodRhythm : INDICATION Abnormal EKG/Arrhythmia Palpitations RISK FACTORS Hypertension Smoking 2D DIMENSIONS IVSd0.9 (0.7-1.1cm)LVDd4.2 (3.9-5.9cm) PWd0.9 (0.7-1.1cm)LA [id number] (18-58mL) LVDs2.9 (2.5-4.0cm)FS (%) 30.9 % LVEF (%)58.9 (>50%)LVEF (Lang's)58.74 % M-Mode DIMENSIONS Left Atrium (MM)3.49 (2.5-4.0cm)IVSd0.82 (0.7-1.1cm) Aortic Root2.98 (2.2-3.7cm)LVDd4.54 (4.0-5.6cm) Aortic Cusp Exc.2.07 (1.5-2.0cm)PWd0.74 (0.7-1.1cm) FS (%) 35 %LVDs2.94 (2.0-3.8cm) LVEF (%)65 (>50%) Mitral Valve MV E Eokvsabm25.3cm/sMV A Axiehhwl40.0cm/sE/A ratio0.8 TDI Lateral E' Peak V9.77cm/sMedial E' Peak V6.03cm/sE/Lateral E'6.7 E/Medial E'10.8 Tricuspid Valve TR Peak [id number]/sTR Peak Gr.[id number] LEFT VENTRICLE The left ventricle is normal size. There is normal left ventricular wall thickness. Left ventricle systolic function is normal. The Ejection Fraction is 55-60%. There is normal LV segmental wall motion. Diastolic dysfunction. RIGHT VENTRICLE The right ventricle is normal size. There is normal right ventricular wall thickness. The right ventricular systolic function is normal. ATRIA The left atrium size is normal. The right atrium size is normal. The interatrial septum is intact with no evidence for an atrial septal defect. AORTIC VALVE The aortic valve is normal in structure. No aortic regurgitation is present. There is no aortic valvular stenosis. MITRAL VALVE The mitral valve is normal in structure. There is no evidence of mitral valve prolapse. There is no mitral valve stenosis. Mitral regurgitation is mild. TRICUSPID VALVE The tricuspid valve is normal in structure. There is trace to mild tricuspid regurgitation. Right ventricular systolic pressure is estimated at less than 30 mmHg. There is no pulmonary hypertension. PULMONIC VALVE The pulmonic valve is not well visualized. There is no pulmonic valvular regurgitation. GREAT VESSELS The aortic root is normal in size. PERICARDIAL EFFUSION There is no significant pericardial effusion. <Conclusion> Left ventricle systolic function is normal. The Ejection Fraction is 55-60%. Diastolic dysfunction. No aortic regurgitation is present. Mitral regurgitation is mild. There is trace to mild tricuspid regurgitation. There is no pulmonary hypertension. There is no pulmonic valvular regurgitation.
[2018-06-24 07:12] VITALS: O2SAT 100
== END 2018-06-15 17:04 | disposition home or self-care (01) | DRG 199 ==
LOC: C.ER 14:30 → MERGE 16:45 → C.6T 16:45
PROVIDERS: ADMIT Family Medicine; ATTEND Family Medicine
DX: I16.0 Hypertensive urgency (principal); J44.9 Chronic obstructive pulmonary disease, unspecified; I10 Essential (primary) hypertension; F17.210 Nicotine dependence, cigarettes, uncomplicated; Z82.5 Family history of asthma and other chronic lower respiratory diseases; Z83.3 Family history of diabetes mellitus